=== PATIENT | female | born 1990 | race Caucasian/White ===

== ENCOUNTER 2019-12-23 14:05 | Emergency (ER) | payer MEDICAID ==
[2019-12-23] MEDS ORDERED: PROCHLORPERAZINE EDISYLATE INJ 10 MG/2 ML VIAL IV ONE ×2 (14:34→18:00)
[2019-12-23] MEDS ORDERED: KETOROLAC TROMETHAMINE INJ/PF 30 MG/1 ML SDV IV ONE ×2 (14:34→18:00)
[2019-12-23] MEDS ORDERED: DIPHENHYDRAMINE HCL 50 MG/ML VIAL IV ONE ×2 (14:34→18:00)
[2019-12-23] MEDS ORDERED: NORMAL SALINE 1000 ML 1,000 ML IV ONE (14:35)
--- NOTE | 2019-12-23 14:36 | ER Document Report ---
ED Medical Screen (RME) - General Chief Complaint: Headache Stated Complaint: MIGRAIN Time Seen by Provider: 12/23/19 14:31 Primary Care Provider: SHASTA SEVILLA MD [Primary Care Provider] - Follow up as needed Mode of Arrival: Ambulatory Information source: Patient Notes: Patient is a 29-year-old female presenting to the emergency department with what she describes as a migraine headache that is been ongoing for the last 2 weeks. Patient reports this is located in the front of her head. She reports associated nausea, photophobia and phonophobia. She does report a history of migraines, states this is much worse and has lasted longer than her usual. Denies any fever or neck pain. No nuchal rigidity noted. I have greeted and performed a rapid initial assessment of this patient. A comprehensive ED assessment and evaluation of the patient, analysis of test results and completion of the medical decision making process will be conducted by additional ED providers. I have specifically instructed the patient or family members with the patient to immediately return to any nursing staff should anything change in the patient's condition or with their chief complaint. TRAVEL OUTSIDE OF THE [place] IN LAST 30 DAYS: No - Related Data Allergies/Adverse Reactions: No Known Allergies Allergy (Verified 01/09/15 18:14) Past Medical History GI Medical History: Reports: Hx Gastroesophageal Reflux Disease Past Surgical History: Reports: Hx Orthopedic Surgery - Immunizations Hx Diphtheria, Pertussis, Tetanus Vaccination: Yes Physical Exam - Vital signs Vitals: Temp Pulse Resp BP Pulse Ox 98.6 F 81 20 129/64 H 99 12/23/19 14:12 12/23/19 14:12 12/23/19 14:12 12/23/19 14:12 12/23/19 14:12 Course - Vital Signs Vital signs: Temp Pulse Resp BP Pulse Ox 98.6 F 81 20 129/64 H 99 12/23/19 14:16 12/23/19 14:12 12/23/19 14:12 12/23/19 14:12 12/23/19 14:12 Doctor's Discharge - Discharge Referrals: SHASTA SEVILLA MD [Primary Care Provider] - Follow up as needed
--- NOTE | 2019-12-23 15:16 | ER Document Report ---
ED Headache - General Mode of Arrival: Ambulatory TRAVEL OUTSIDE OF THE [place] IN LAST 30 DAYS: No - General Chief Complaint: Headache Stated Complaint: MIGRAIN Time Seen by Provider: 12/23/19 14:31 Primary Care Provider: SHASTA SEVILLA MD [ACTIVE STAFF] - Follow up as needed Notes: CHIEF COMPLAINT: Headache for 2-1/2 weeks HPI: 29-year-old female presenting with a continuous headache over the left forehead region for the last 2-1/2 weeks. No visual changes although she does report some photosensitivity to light. Patient states that she gets a headache she would consider migraine type every other month. They have never lasted this long normally only last 24 hours and go away but are in the same region generally and not as intense. Denies weakness numbness or tingling in the extremities. Denies fever or vomiting but has had nausea with this. Denies abdominal pain. Has been taking Tylenol for the discomfort. Has not seen a PCP for evaluation of symptoms. States she has not had a work-up for migraines in the past but believes that is what she has been having. No family history of brain cancer or aneurysm ROS: See HPI - all other systems were reviewed and are otherwise negative Constitutional: no fever Eyes: no drainage, no blurred vision, positive photophobia ENT: no runny nose, no sore throat Cardiovascular: no chest pain Resp: no SOB, no cough GI: no vomiting, no diarrhea, no abdominal pain, positive nausea : no dysuria Integumentary: no rash Allergy: no hives Musculoskeletal: no extremity pain or swelling Neurological: no numbness/tingling, no weakness, positive headache MEDICATIONS: I agree with the patient medications as charted by the RN. ALLERGIES: I agree with the allergies as charted by the RN. PAST MEDICAL HISTORY/PAST SURGICAL HISTORY: Reviewed and agree as charted by RN. SOCIAL HISTORY: Reviewed and agree as charted by RN. FAMILY HISTORY: No significant familial comorbid conditions directly related to patient complaint EXAM: Reviewed vital signs as charted by RN. CONSTITUTIONAL: Alert and oriented and responds appropriately to questions. Well-appearing; well-nourished, mild distress secondary to discomfort HEAD: Normocephalic; atraumatic EYES: PERRL; Conjunctivae clear, sclerae non-icteric, mild photophobia is noted. Funduscopic exam does not reveal evidence of disc edema or hemorrhage ENT: normal nose; no rhinorrhea; moist mucous membranes; pharynx without lesions noted, no uvula edema or deviation, no tonsillar hypertrophy, phonation normal NECK: Supple without meningismus; non-tender; no cervical lymphadenopathy, no masses CARD: RRR; no murmurs, no clicks, no rubs, no gallops; symmetric distal pulses RESP: Normal chest excursion without splinting or tachypnea; breath sounds clear and equal bilaterally; no wheezes, no rhonchi, no rales, pulse oximetry 98% on room air not hypoxic. ABD/GI: Normal bowel sounds; non-distended; soft, non-tender, no rebound, no guarding; no palpable organomegaly or masses. BACK: The back appears normal and is non-tender to palpation, there is no CVA tenderness EXT: Normal ROM in all joints; non-tender to palpation; no cyanosis, no e ffusions, no edema SKIN: Normal color for age and race; warm; dry; good turgor; no acute lesions noted NEURO: Moves all extremities equally; Motor and sensory function intact. CN II through XII grossly intact. Gait is normal. Strength equal 5/5 bilateral upper and lower extremities. Sensation intact and equal bilateral upper and lower extremities. PSYCH: The patient's mood and manner are appropriate. Grooming and personal hygiene are appropriate. MDM: 29-year-old female presenting for evaluation of left frontal headache for 2-1/2 weeks. Initial screening work-up through the triage process, awaiting IV and medications and will reassess (MESHA CORTEZ) - Related Data Allergies/Adverse Reactions: No Known Allergies Allergy (Verified 01/09/15 18:14) Past Medical History - General Information source: Patient - Social History Smoking Status: Current Every Day Smoker Family History: Reviewed & Not Pertinent Patient has suicidal ideation: No Patient has homicidal ideation: No GI Medical History: Reports: Hx Gastroesophageal Reflux Disease Past Surgical History: Reports: Hx Orthopedic Surgery - Immunizations Hx Diphtheria, Pertussis, Tetanus Vaccination: Yes Physical Exam - Vital signs Vitals: Temp Pulse Resp BP Pulse Ox 98.6 F 81 20 129/64 H 99 12/23/19 14:12 12/23/19 14:12 12/23/19 14:12 12/23/19 14:12 12/23/19 14:12 Course - Re-evaluation Re-evalutation: 12/23/19 16:08 Nursing has been having difficulty getting the IV the patient has not yet received her medications. Still with a headache unchanged. Awaiting on IV placement for medications and will then reassess. 12/23/19 16:33 Report to Josie Solis NP, [facility] and disposition (MESHA CORTEZ) 12/23/2019 Assumed care from Mesha Drake Nurse Practitioner 12/23/19 19:33 Patient is resting comfortably states her headache has almost fully resolved. Neurologically and neurovascularly intact. Stable for discharge counseled take medications as prescribed. Patient follow-up with her primary care physician call for an appointment. She was given strict return to the emergency room guidelines. Return for any new or worsening symptoms. All questions were answered. Patient verbalized understanding and agrees with plan of care. 12/23/19 19:39 (KHRIS SOLIS) - Vital Signs Vital signs: Temp Pulse Resp BP Pulse Ox 98.6 F 81 20 129/64 H 99 12/23/19 14:16 12/23/19 14:12 12/23/19 14:12 12/23/19 14:12 12/23/19 14:12 Discharge - Discharge Clinical Impression: Headache Condition: Good Disposition: HOME, SELF-CARE Instructions: Headache ([facility]) Additional Instructions: Rest take medications as prescribed. Call your primary care physician for an outpatient follow-up appointment. Prescriptions: Butalb/Acetaminophen/Caffeine [Fioricet (50-325-40 mg) Tablet] 1 tab PO Q4H #20 tab Referrals: SHASTA SEVILLA MD [ACTIVE STAFF] - Follow up as needed
[2019-12-23] MEDS ORDERED: DIPHENHYDRAMINE HCL 50 MG/ML VIAL ONE (18:24)
[2019-12-23] MEDS ORDERED: KETOROLAC TROMETHAMINE INJ/PF 30 MG/1 ML SDV ONE (18:24)
[2019-12-23] MEDS ORDERED: PROCHLORPERAZINE EDISYLATE INJ 10 MG/2 ML VIAL ONE (18:24)
[2019-12-23 21:20] VITALS: BP 128/68
== END 2019-12-23 19:45 | disposition home or self-care (01) ==
LOC: ER 14:05
DX: R51 Headache (principal); H53.149 Visual discomfort, unspecified; F17.200 Nicotine dependence, unspecified, uncomplicated
CPT/HCPCS: 99283; 96361; 96374; 96375; J1200; J1885; J0780; J7030